=== PATIENT | male | born 1995 | race American Indian/Alaskan Native ===

== ENCOUNTER 2021-01-28 08:48 | Emergency (ER) | payer OTHER ==
[~2021-01-28] VITALS: Ht 182.9 cm; Wt 83.4 kg
[2021-01-28 08:50] VITALS: BP 128/73
== END 2021-01-28 09:27 | disposition home or self-care (01) ==
LOC: M ED 08:48
DX: T33.532A Superficial frostbite of left finger(s), initial encounter (principal); Y99.1 Military activity; Y92.9 Unspecified place or not applicable; Y93.9 Activity, unspecified

== ENCOUNTER 2022-07-30 10:15 | Emergency (ER) | payer OTHER ==
[~2022-07-30] VITALS: Ht 182.9 cm; Wt 86.9 kg
[2022-07-30] MEDS ORDERED: IBUP-1022 PO (11:05)
[2022-07-30] MEDS ORDERED: methocarbamoL 750 MG TAB PO ONE (12:15)
[2022-07-30] MEDS ORDERED: predniSONE 20 MG TAB PO ONE (12:15)
[2022-07-30] MEDS ORDERED: KETOROLAC 60MG 2ML VIAL IM ONE (12:15)
[2022-07-30] MEDS ORDERED: PRED20TA PO (13:19)
[2022-07-30] MEDS ORDERED: KETO10TAB PO (13:19)
[2022-07-30] MEDS ORDERED: METH-1165 PO (13:19)
[2022-07-30 13:32] VITALS: BP 125/67
== END 2022-07-30 13:34 | disposition home or self-care (01) ==
LOC: M ED 10:15
DX: M62.838 Other muscle spasm (principal); M51.9 Unspecified thoracic, thoracolumbar and lumbosacral intervertebral disc disorder; M50.93 Cervical disc disorder, unspecified, cervicothoracic region
CPT/HCPCS: 96372; 99283; J1885; J7512

== ENCOUNTER 2022-08-04 12:48 | Emergency (ER) | payer OTHER ==
[~2022-08-04] VITALS: Ht 182.9 cm; Wt 87.2 kg
[~2022-08-04 12:48] MED LIST: IBUP-1022 PO; KETO10TAB PO; METH-1165 PO; PRED20TA PO
[2022-08-04 12:50] VITALS: BP 128/70
[2022-08-04] MEDS ORDERED: KETOROLAC 60MG 2ML VIAL IM ONE (16:20)
[2022-08-04] MEDS ORDERED: diazePAM 2 MG TAB PO ONE (16:20)
== END 2022-08-04 17:43 | disposition home or self-care (01) ==
LOC: M ED 12:48
DX: M54.50 Low back pain, unspecified (principal); G89.29 Other chronic pain; Z79.899 Other long term (current) drug therapy
CPT/HCPCS: 96372; 99282; J1885